=== PATIENT | female | born 1960 | race Caucasian/White ===

== ENCOUNTER 2016-03-29 17:07 | Inpatient (IN) | payer OTHER ==
[~2016-03-29] VITALS: Ht 154.9 cm; Wt 47.9 kg
[2016-03-29] MEDS ORDERED: SODIUM CHLORIDE 0.9% 1,000 ML ONE (17:27)
[2016-03-29] MEDS ORDERED: ONDANSETRON 4 MG VIAL ONE (17:48)
[2016-03-29] MEDS ORDERED: SODIUM CHLORIDE 0.9% 500 ML IV ONE ×2 (18:30→19:15)
[2016-03-29] MEDS ORDERED: SALINE FLUSH 10 ML FLUSH PRN (22:15)
[2016-03-29] MEDS ORDERED: ONDANSETRON 4 MG VIAL IV PRN (22:15)
[2016-03-29] MEDS ORDERED: PHARMACY TO DOSE LEVAQUIN IV SCH (22:15)
[2016-03-29 23:07] VITALS: BP_SYST 96; BP_SYST 98; RESP 16; TEMP 97.5; Ht 154.9 cm; Wt 47.9 kg
[2016-03-29] MEDS ORDERED: LEVOFLOXACIN 750 MG/150 ML 150 ML IV ONE (23:17)
[2016-03-30] VITALS (7 sets, daily range): BP systolic 84–119; RESP 16–20; TEMP 97.4–98
[2016-03-30] MEDS: SODIUM CHLORIDE 0.9% 1,000 ML IV SCH ×3 (00:05→17:21)
[2016-03-30] MEDS: SALINE FLUSH 10 ML FLUSH SCH ×3 (00:06→20:00)
[2016-03-30] MEDS: METRONIDAZOLE 500MG/100ML 100 ML IV SCH ×5 (02:41→23:43)
[2016-03-30] MEDS: SODIUM CHLORIDE 0.9% FLUSH BAG 500 ML IV SCH (05:38)
[2016-03-30] MEDS: PANTOPRAZOLE 40 MG TAB PO SCH (06:00)
[2016-03-30] MEDS ORDERED: KCL CR 20 MEQ TAB PO ONE (08:00)
[2016-03-30] MEDS: ESCITALOPRAM 10 MG TAB PO SCH (08:23)
[2016-03-30] MEDS: ASPIRIN EC 81 MG TAB PO SCH (08:23)
[2016-03-30] MEDS: CILOSTAZOL 100 MG TAB PO SCH ×2 (08:23→20:42)
[2016-03-31] VITALS (9 sets, daily range): BP systolic 99–147; RESP 18–20; TEMP 97.4–98.5
[2016-03-31] MEDS: SODIUM CHLORIDE 0.9% 1,000 ML IV SCH ×3 (01:08→17:35)
[2016-03-31] MEDS: SODIUM CHLORIDE 0.9% FLUSH BAG 500 ML IV SCH ×2 (02:50→19:33)
[2016-03-31] MEDS: PANTOPRAZOLE 40 MG TAB PO SCH (06:09)
[2016-03-31] MEDS: METRONIDAZOLE 500MG/100ML 100 ML IV SCH ×3 (06:09→18:56)
[2016-03-31] MEDS: SALINE FLUSH 10 ML FLUSH SCH ×2 (06:10→19:33)
[2016-03-31] MEDS ORDERED: KCL CR 20 MEQ TAB PO ONE (08:05)
[2016-03-31] MEDS: ASPIRIN EC 81 MG TAB PO SCH (08:24)
[2016-03-31] MEDS: ESCITALOPRAM 10 MG TAB PO SCH (08:24)
[2016-03-31] MEDS: CILOSTAZOL 100 MG TAB PO SCH ×2 (08:24→20:36)
[2016-03-31] MEDS ORDERED: LEVOFLOXACIN 500 MG/100 ML 100 ML IV SCH (09:00)
[2016-03-31] MEDS ORDERED: LEVOFLOXACIN 750 MG/150 ML 150 ML IV SCH (09:00)
[2016-04-01] VITALS (7 sets, daily range): BP systolic 103–132; RESP 16–20; TEMP 97.8–99.3
[2016-04-01] MEDS: SODIUM CHLORIDE 0.9% 1,000 ML IV SCH (00:26)
[2016-04-01] MEDS: METRONIDAZOLE 500MG/100ML 100 ML IV SCH ×5 (00:26→23:23)
[2016-04-01] MEDS: PANTOPRAZOLE 40 MG TAB PO SCH ×2 (06:00→09:08)
[2016-04-01] MEDS: SALINE FLUSH 10 ML FLUSH SCH (08:00)
[2016-04-01] MEDS ORDERED: SODIUM CHLOR 0.9% W/KCL 20MEQ 1,000 ML IV SCH (08:10)
[2016-04-01] MEDS ORDERED: ONDANSETRON 4 MG VIAL IV PUSH PRN (09:00)
[2016-04-01] MEDS ORDERED: LEVOFLOXACIN 750 MG/150 ML 150 ML IV SCH (09:00)
[2016-04-01] MEDS: ASPIRIN EC 81 MG TAB PO SCH (09:11)
[2016-04-01] MEDS: ESCITALOPRAM 10 MG TAB PO SCH (09:11)
[2016-04-01] MEDS: CILOSTAZOL 100 MG TAB PO SCH ×2 (09:11→20:18)
[2016-04-01] MEDS ORDERED: KCL CR 20 MEQ TAB PO SCH (11:13)
[2016-04-01] MEDS: KCL CR 20 MEQ TAB PO SCH ×2 (17:02→20:18)
[2016-04-01] MEDS: ICY HOT TOPICAL SCH (19:13)
[2016-04-01] MEDS ORDERED: SPIRONOLACTONE 25 MG TAB PO ONE (20:25)
[2016-04-02] VITALS (9 sets, daily range): BP systolic 76–139; RESP 16; TEMP 97.4–99
[2016-04-02] MEDS: METRONIDAZOLE 500MG/100ML 100 ML IV SCH ×2 (05:54→12:43)
[2016-04-02] MEDS: PANTOPRAZOLE 40 MG TAB PO SCH (06:48)
[2016-04-02] MEDS: MAGNESIUM SULF 1 GM/100 ML 100 ML IV SCH ×3 (07:30→10:06)
[2016-04-02] MEDS ORDERED: SODIUM CHLORIDE 0.9% 500 ML IV ONE (08:15)
[2016-04-02] MEDS ORDERED: METOPROLOL 5 MG/5 ML VIAL IV ONE (08:15)
[2016-04-02] MEDS ORDERED: COLESTIPOL HCL 1 GM TAB PO SCH (09:00)
[2016-04-02] MEDS ORDERED: LISINOPRIL 10 MG TAB PO SCH (09:00)
[2016-04-02] MEDS ORDERED: LEVOFLOXACIN 750 MG/150 ML 150 ML IV SCH (09:00)
[2016-04-02] MEDS ORDERED: amLODIPine 10 MG TAB PO SCH (09:00)
[2016-04-02] MEDS ORDERED: ATENOLOL 25 MG TAB PO SCH (09:00)
[2016-04-02] MEDS ORDERED: KCL CR 10 MEQ TAB PO SCH (09:00)
[2016-04-02] MEDS: CILOSTAZOL 100 MG TAB PO SCH (09:05)
[2016-04-02] MEDS: ESCITALOPRAM 10 MG TAB PO SCH (09:05)
[2016-04-02] MEDS: ASPIRIN EC 81 MG TAB PO SCH (09:05)
[2016-04-02] MEDS: ICY HOT TOPICAL SCH (09:07)
[2016-04-02] MEDS: KCL CR 20 MEQ TAB PO SCH (09:17)
[2016-04-02] MEDS ORDERED: Atorvastatin 20 MG TAB PO SCH (21:00)
== END 2016-04-02 17:21 | disposition home or self-care (01) | DRG 392 ==
LOC: ER 17:07 → DELPENDDIS 22:11 → ENPENDDIS 22:11 → EMR 22:11 → 3NT 23:14
PROVIDERS: ADMIT Internal Medicine; ATTEND Internal Medicine
CPT/HCPCS: 36415; 74022; 74176; 80053; 82553; 83605; 83690; 83735; 84132; 84484; 85025; 85610; 85730; 93005; 94799; 96361; 96374; 99222; 99232; 99239